=== PATIENT | female | born 1975 | race Caucasian/White ===

== ENCOUNTER 2021-10-11 15:05 | Emergency (ER) | payer OTHER, SELFPAY ==
[2021-10-11 15:21] VITALS: BP 106/71; PULSE 96; RESP 18; TEMP 36.7; O2SAT 97; BMI 27.4
[2021-10-11 15:48] LABS: COVID-19 Test Positive (Negative); IDNOW Serial# 08D9AD1C; IDNOW Serial# 9DD0AD1C; Strep A Nucleic Acid Negative (Negative)
--- NOTE | 2021-10-11 16:31 | ED_ITS ---
HPI - General Adult General Chief complaint: General Medical Stated complaint: tonsils swollen Time Seen by Provider: 10/11/21 16:21 Source: patient Mode of arrival: ambulatory Limitations: no limitations History of Present Illness HPI narrative: 46-year-old female with a past medical history of tonsillitis here with complaints of sore throat and dry cough for 3 days. No fevers or chills. Patient is not vaccinated for COVID. Related Data Allergies Allergy/AdvReac Type Severity Reaction Status Date / Time No Known Allergies Allergy Verified 10/11/21 15:20 Review of Systems Review of Systems: Yes all other systems are reviewed and are negative Constitutional: Constitutional: Reports no additional constitutional complaints, Denies body ache(s), Denies chills, Denies fever(s), Denies headache(s) and Denies weakness Eyes: Eyes: Reports no additional eye complaints and Denies change in vision ENT: Reports system reviewed and no additional complaints, except as documented, Denies dizziness, Denies headache(s), Denies nasal congestion, Denies nasal discharge, Denies neck pain and Reports sore throat Cardiovascular: Cardiovascular: Reports no additional cardiovascular complaints, Denies chest pain, Denies leg edema and Denies dyspnea Respiratory: Respiratory: Reports no additional respiratory complaints, Reports cough and Denies dyspnea Gastrointestinal: Gastrointestinal: Reports no additional gastrointestinal complaints, Denies abdominal pain, Denies diarrhea, Denies nausea and Denies vomiting Genitourinary: Genitourinary: Reports no additional female genitourinary complaints and Denies urinary incontinence Musculoskeletal: Musculoskeletal: Reports no additional musculoskeletal complaints, Denies back pain, Denies arthralgias, Denies joint swelling, Denies neck pain, Denies numbness and Denies tingling Integumentary/Breasts: Skin/Breast: Reports system reviewed and no additional complaints, except as docu and Denies rash Neurologic: Reports system reviewed and no additional complaints, except as documented, Denies Abnormal speech present, Denies dizziness, Denies headache(s), Denies numbness, Denies tingling and Denies weakness PMFSH Past Medical History Attestation statement: The following information was validated with the patient. Source: old records reviewed and nursing notes reviewed Medical History Depression Migraines Tonsillitis Social History Social History Advance Directives: No Advance Directives Information Provided: No Patient : No Physical Exam Vital Signs: Vital Signs: Last Vital Signs Temp 98.0 F 10/11/21 15:21 Pulse 96 10/11/21 15:21 Resp 18 10/11/21 15:21 BP 106/71 10/11/21 15:21 Pulse Ox 97 10/11/21 15:21 Body Mass Index 27.4 Const: General: cooperative, healthy appearing, comfortable and no acute distress Orientation/consciousness: patient oriented x3 Limitations: no limitations HENMT: Head: Yes normal to inspection Ears: hearing grossly normal bilatera lly and TM's normal bilaterally General nose exam: Normal external nose present Face and sinus: Yes normal facial exam Mouth: Normal oral and palatal mucosa present Throat: Yes posterior oropharynx normal, Yes tonsils normal and Yes uvula midline Eyes: General: appearance normal, both eyes and all related structures Pupils: Equal, round and reactive pupils present Neck: Neck: Yes normal visual inspection, Yes full ROM and Yes no lymphadenopathy Chest: Chest palpation & inspection: normal inspection of the chest Resp: Effort & Inspection: normal respiratory effort Auscultation: clear to auscultation bilaterally Cardio: Rate: regular rate Rhythm: regular rhythm Peripheral pulses: Peripheral pulses 2+ throughout GI: Inspection: Yes normal to inspection Palpation (GI): Soft to palpation and nontender Auscultation: normal bowel sounds Back/Spine/Pelvis: Thoracic/Lumbar Spine: thoracic and lumbar spine normal to inspection Skin: General skin exam: no rashes or lesions noted Neuro: General: patient oriented x3, no focal motor deficits and normal sensation to monofilament Cranial nerves: Yes Equal, round and reactive pupils present Cognition (Neuro): normal cognition Speech: No Abnormal speech present Gait exam (Neuro): Normal gait present Motor exam (neuro): 5/5 motor strength present throughout Extrem: General: Yes normal to inspection Course Course Course Narrative: Sore throat and cough for 3 days. Strep test is negative. Exam is not consistent with strep pharyngitis. Rapid COVID is positive. Discussed quarantine with patient. Reviewed worrisome signs and symptoms of when to return to the emergency department. Comfortable discharge home. Medical Decision Making Medical Records Medical records reviewed: Yes I reviewed the patient's medical records. Lab Data Lab results reviewed: Yes I reviewed the patient's lab results. Labs: Lab Results 10/11/21 10/11/21 Range/Units 15:26 15:26 COVID-19 (JOIE) Positive A (Negative) COVID-19 Clin Com See Note S. pyogenes GrpA LIGIA Negative (Negative) Discharge Plan Discharge Clinical Impression: COVID-19 Patient Disposition: Home, Self-Care Instructions: COVID-19 (Coronavirus Disease 2019) (ED) Additional Instructions: Rapid strep test is negative Motrin or tylenol for pain Salt water gargles Cepacol lozenges 10 day quarentine Referrals: Meng Penn MD [Primary Care Provider] - 2 days Stand Alone Forms: Work/School Release
== END 2021-10-11 17:23 | disposition home or self-care (01) ==
PROVIDERS: Emergency Provider Emergency Medicine Emergency Medical Services; PCP Internal Medicine
DX: U07.1 COVID-19 (principal)
CPT/HCPCS: 36415; 87635; 87651; 99283

== ENCOUNTER 2023-07-02 15:51 | Outpatient (AMB) | payer OTHER, SELFPAY ==
--- NOTE | 2023-07-02 15:58 | AM.OFFWIN_ITS ---
Intake Vital Signs 07/02/23 16:03 BP 130/90 H Blood Pressure Location Lt brachial Position Sitting Pulse 98 Pulse Source Pulse Oximeter Temp 98.2 F Temp Source Oral Pulse Oximetry (%) 99 Oxygen Delivery Method Room Air Intake Visit Reasons: [employer], Cold Sores in lips Intake Note: Patient here for cold sores around mouth, she states she has had them before but never as bad as it is now. pt has been using abreva Patient Tobacco Use Status: Never used Tobacco Allergies No Known Allergies Allergy (Verified 07/02/23 16:00) Do you need a note to return to daycare/school/sports/work: No HPI HPI Comments History of Present Illness Details 48-year-old woman presents for cold sores patient's prodrome tingling yesterday on her upper lip. She used cream at home. Today she woke up vesicles on her upper and lower lips. Exquisitely. She has had cold sores previously before. She has been on acyclovir before. [facility] Medical History Depression Migraines Tonsillitis Social History Patient Tobacco Use Status: Never used Tobacco Review of Systems Const All systems reviewed & are unremarkable except as noted in HPI and below Reports as per HPI ENT Details: Cold sores on upper and lower lip Physical Exam Vital Signs: Last Vital Signs Temp 98.2 F 07/02/23 16:03 Pulse 98 07/02/23 16:03 BP 130/90 H 07/02/23 16:03 Pulse Ox 99 07/02/23 16:03 Oxygen Delivery Method Room Air 07/02/23 16:03 Const General: cooperative, healthy appearing, no acute distress, well developed and alert HEENT Other: Crusted lesions vesicles on the upper and lower lips. 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 Exam patient presents alert and oriented no acute distress exam notable for vesicles crusted lesions on the upper and lower lips. No oral mucosa involvement. Symptoms of incision consistent with herpes labialis. Acyclovir prescribed. Discharge instructions, follow up and treatment are discussed with patient in my usual fashion. Alternatives in treatment are also discussed. The patient will return for worsening symptoms or as needed. Advised that any labs/imaging ordered will be followed up on and contact made if further treatment needed. Counseled that patient's condition may require further evaluation and/or treatment. Symptoms of concern for worsening disorder discussed in detail in my customary manner. Patient does verbalize understanding of the plan, there are no apparent barriers to communication. The patient is given the opportunity to ask questions and have them answered to his/her satisfaction Medications: New acyclovir 400 mg orally 5x/day (q4hrs while awake); x 5 days 25 tabs 0RF Coding Level of Care Code New Pt Level 3 (47076) Diagnoses Herpes labialis B00.1
[2023-07-02 16:03] VITALS: BP 130/90; PULSE 98; TEMP 36.8; O2SAT 99
== END 2023-07-02 16:14 | disposition home or self-care (01) ==
PROVIDERS: PCP Internal Medicine; Visit Provider Physician Assistant
DX: B00.1 Herpesviral vesicular dermatitis (principal)
CPT/HCPCS: 99203

== ENCOUNTER 2023-10-05 09:10 | Outpatient (AMB) | payer OTHER, SELFPAY ==
[2023-10-05 10:19] VITALS: BP 132/84; PULSE 108; TEMP 36.7; O2SAT 98; BMI 27.5
--- NOTE | 2023-10-05 10:19 | AM.OFFWIN_ITS ---
Intake Vital Signs 10/05/23 10:19 Height 5 ft 4 in Weight 160 lb BMI 27.5 BP 132/84 Blood Pressure Location Rt brachial Position Sitting Pulse 108 H Pulse Source Pulse Oximeter Temp 98.0 F Temp Source Oral Pulse Oximetry (%) 98 Oxygen Delivery Method Room Air Intake Visit Reasons: EST/pink eye & sinus infection [phone] Intake Note: pt is here for c/o possible sinus infection and eye irritation , redness, watery. denies vision change Patient Tobacco Use Status: Never used Tobacco Allergies No Known Allergies Allergy (Verified 10/05/23 10:21) Do you need a note to return to daycare/school/sports/work: Yes HPI EST/pink eye & sinus infection [phone] HPI Details Patient presents for a sick visit. Reporting symptoms of sinus congestion, sore throat and difficulty swallowing. Low-grade fever. No family member is sick. No recent travel. Patient reports symptoms of malaise and fatigue. [facility] Medical History Depression Migraines Tonsillitis Social History Patient Tobacco Use Status: Never used Tobacco Physical Exam Vital Signs: Last Vital Signs Temp 98.0 F 10/05/23 10:19 Pulse 108 H 10/05/23 10:19 BP 132/84 10/05/23 10:19 Pulse Ox 98 10/05/23 10:19 Oxygen Delivery Method Room Air 10/05/23 10:19 BMI result Body Mass Index 27.5 Const General: cooperative and healthy appearing Nutritional Appearance: well nourished Orientation/consciousness: patient oriented x3 Limitations: no limitations HEENT Head: Yes normal to inspection Eyes Other: Congested conjunctiva, bulbar and tarsal, bilaterally. General: appearance normal, both eyes and all related structures Neck Neck: Yes normal visual inspection Chest Chest palpation & inspection: normal palpation of entire chest wall Resp Effort & Inspection: normal respiratory effort Neuro General: patient oriented x3 Assessment & Plan Assessment & Plan (1) Upper respiratory tract infection: Code(s): J06.9 - Acute upper respiratory infection, unspecified Plan: Antibiotics ordered. Increase fluid intake. Tylenol for aches and pains. If symptoms worsen, follow-up here for a recheck. Medications: New prednisone 60 mg (3 x 20 mg) PO DAILY 9 tabs 0RF azithromycin take 500 mg today (day 1), then 250 mg for 4 days (days 2-5) PO 6 tabs 0RF albuterol sulfate 90 mcg/actuation (Ventolin HFA) 1 inh inhalation QID PRN 8.5 grams 1RF shortness of breath or wheezing Coding Level of Care Code Est Pt Level 3 (98016) Diagnoses Upper respiratory tract infection J06.9
== END 2023-10-05 11:17 | disposition home or self-care (01) ==
PROVIDERS: PCP Internal Medicine; Visit Provider Internal Medicine
DX: J06.9 Acute upper respiratory infection, unspecified (principal)
CPT/HCPCS: 99213

== ENCOUNTER 2023-10-05 13:19 | Outpatient (REF) | payer OTHER, SELFPAY ==
[2023-10-05 15:01] LABS: Influenza A PCR NEGATIVE (Negative); Influenza B PCR NEGATIVE (Negative); Resp Syncy Virus RNA Qual PCR NEGATIVE (Negative); SARS COV2 PCR INHOUSE NEGATIVE (Negative)
== END 2023-10-05 13:20 | disposition home or self-care (01) ==
LOC: HO.LNP 13:19
PROVIDERS: Visit Provider Internal Medicine
DX: Z11.52 Encounter for screening for COVID-19 (principal); Z20.822 Contact with and (suspected) exposure to COVID-19; R43.9 Unspecified disturbances of smell and taste
CPT/HCPCS: 0241U

== ENCOUNTER 2024-03-23 13:55 | Outpatient (AMB) | payer OTHER, SELFPAY ==
[2024-03-23 13:58] VITALS: BP 126/76; PULSE 105; TEMP 36.7; O2SAT 96; BMI 28.5
--- NOTE | 2024-03-23 13:58 | MHC.OFFWIV ---
Intake Vital Signs 03/23/24 13:58 Height 5 ft 4 in Weight 166 lb BMI 28.5 BP 126/76 Blood Pressure Location Lt brachial Position Sitting Pulse 105 H Pulse Source Pulse Oximeter Temp 98.0 F Temp Source Temporal Artery Scan Pulse Oximetry (%) 96 Oxygen Delivery Method Room Air Intake Visit Reasons: EP Sinus/Ear ache Intake Note: pt is here today for sinus and ear ache started 3 weeks ago Patient Tobacco Use Status: Never used Tobacco Allergies lidocaine Allergy (Mild, Verified 03/23/24 14:22) Nausea Medication List - Last Reconciled 03/23/24 by Bharathi Miranda MD acyclovir 400 mg orally 5x/day (q4hrs while awake); x 5 days albuterol sulfate 90 mcg/actuation (Ventolin HFA) 1 inh inhalation QID PRN amoxicillin 500 mg PO Q8H atogepant (Qulipta) 60 mg PO DAILY carisoprodol 350 mg PO BEDTIME duloxetine 120 mg PO DAILY fluticasone propionate 50 mcg/actuation (Flonase Allergy Relief) 1 spray intranasal DAILY naratriptan 2.5 mg PO DIRECTED norethindrone acetate mg PO ondansetron HCl 4 mg PO Q12H PRN riboflavin (vitamin B2) (Vitamin B-2) 200 mg PO BID topiramate 50 mg PO BID Do you need a note to return to daycare/school/sports/work: No HPI EP Sinus/Ear ache HPI Details 49 yr old female presents to the office for a sick visit. Recently returned on a flight from [place]. Right ear pain, congestion and sinus fullness. Low grade headaches. No fever or chills. PFSH Medical History Depression Migraines Tonsillitis Social History Patient Tobacco Use Status: Never used Tobacco Physical Exam Vital Signs: Last Vital Signs Temp 98.0 F 03/23/24 13:58 Pulse 105 H 03/23/24 13:58 BP 126/76 03/23/24 13:58 Pulse Ox 96 03/23/24 13:58 Oxygen Delivery Method Room Air 03/23/24 13:58 BMI result Body Mass Index 28.5 Const General: cooperative and healthy appearing Nutritional Appearance: well nourished Orientation/consciousness: patient oriented x3 Limitations: no limitations HEENT Head: Yes normal to inspection Eyes General: appearance normal, both eyes and all related structures Neck Neck: Yes normal visual inspection Chest Chest palpation & inspection: normal palpation of entire chest wall Resp Effort & Inspection: normal respiratory effort Neuro General: patient oriented x3 Assessment & Plan Assessment & Plan (1) Upper respiratory tract infection: Code(s): J06.9 - Acute upper respiratory infection, unspecified Plan: Amox and flonase called in. If sx do not improve to follow up here. Medications: New fluticasone propionate 50 mcg/actuation (Flonase Allergy Relief) administer into each nostril 1 spray intranasal DAILY 9.9 mL 1RF amoxicillin 500 mg PO Q8H 30 caps 0RF Discontinued azithromycin Discontinued Reason: Patient Completed Course take 500 mg today (day 1), then 250 mg for 4 days (days 2-5) PO 6 tabs 0RF Coding Level of Care Code Est Pt Level 3 (53423) Diagnoses Upper respiratory tract infection J06.9
== END 2024-03-23 14:49 | disposition home or self-care (01) ==
PROVIDERS: Visit Provider Internal Medicine
DX: J06.9 Acute upper respiratory infection, unspecified (principal)
CPT/HCPCS: 99213

== ENCOUNTER 2024-07-24 16:46 | Emergency (ER) | payer OTHER, SELFPAY ==
--- NOTE | ~2024-07-24 | XR_ITS ---
EXAMINATION: XR ABDOMEN KUB CLINICAL INDICATION: Abdominal pain, no bowel movement in 5 days. COMPARISON: CT abdomen 12/29/2008. TECHNIQUE: AP view of the abdomen. FINDINGS: Nonobstructive bowel gas pattern. Nonspecific gaseous distention of the stomach and a small loop of bowel in the left upper quadrant. Moderate degree of colonic stool burden in the right hemicolon. Pelvic phleboliths. No acute osseous findings. Included lung bases are clear. XR/XR KUB IMPRESSION: 1. Moderate degree of stool burden in the right hemicolon. 2. Nonspecific gaseous distention of the stomach and a small loop of bowel in the left upper abdomen, could potentially represent focal ileus. Correlate clinically. 3. Nonobstructive bowel gas pattern. Electronically signed by: Carmel Seo MD 07/24/2024 05:30 PM EDT
[2024-07-24 16:50] VITALS: BP 139/77; PULSE 122; RESP 18; TEMP 36.8; O2SAT 98; BMI 28.7
--- NOTE | 2024-07-24 16:51 | ED_ITS ---
HPI - General Adult General Chief complaint: Abdominal Pain Stated complaint: abd pain Time Seen by Provider: 07/24/24 22:08 Source: patient Mode of arrival: ambulatory Limitations: no limitations History of Present Illness ED Provider: Dr. Hair Ramires HPI narrative: 49-year-old female with a history of migraine headaches, depression who was started on Aimovig 4-5 months prior for her migraine headaches and now presents to the emergency department for evaluation of severe constipation and abdominal pain. Patient states that over the last 2 months she has noticed constipation. She states the constipation has gotten worse over the last month and she was taking Senna-S daily in order to move her bowels. She states that her last real bowel movement was 1 week prior. She states she had a bowel movement today but it was very small, hard stool. Also developed abdominal pain over the last week which is gotten progressively worse. She points to her lower abdomen in her left lower quadrant specifically when asked to localize the pain. She denied fever, chills. She has had nausea with no vomiting. She denied frequency , urgency or dysuria Related Data Home Medications ?Medication ?Instructions ?Recorded ?Confirmed carisoprodol 350 mg tablet 350 mg PO BEDTIME 07/02/23 duloxetine 60 mg capsule,delayed 120 mg PO DAILY 07/02/23 release naratriptan 2.5 mg tablet 2.5 mg PO DIRECTED 07/02/23 norethindrone acetate 5 mg tablet mg PO 07/02/23 ondansetron HCl 4 mg tablet 4 mg PO Q12H PRN nausea 07/02/23 riboflavin (vitamin B2) 100 mg 200 mg PO BID 07/02/23 tablet (Vitamin B-2) topiramate 50 mg tablet 50 mg PO BID 07/02/23 atogepant 60 mg tablet (Qulipta) 60 mg PO DAILY 10/05/23 Previous Rx's ?Medication ?Instructions ?Recorded acyclovir 400 mg tablet 400 mg PO .COMPLEX #25 tabs 07/02/23 albuterol sulfate 90 mcg/actuation 1 inh inhalation QID PRN shortness 10/05/23 aerosol inhaler (Ventolin HFA) of breath or wheezing #8.5 grams amoxicillin 500 mg capsule 500 mg PO Q8H #30 caps 03/23/24 fluticasone propionate 50 1 spray intranasal DAILY #9.9 mL 03/23/24 mcg/actuation nasal spray,suspension (Flonase Allergy Relief) Allergies Allergy/AdvReac Type Severity Reaction Status Date / Time lidocaine Allergy Mild Nausea Verified 07/24/24 16:51 Review of Systems 2 Review of Systems: Yes all other systems are reviewed and are negative [facility] Past Medical History [facility] Narrative: Social history: She denies tobacco use. She occasionally drinks alcohol. She denies drug use. Medical History Depression Migraines Tonsillitis Social History Social History Patient Tobacco Use Status: Never used Tobacco Advance Directives: No Advance Directives Information Provided: No Do you have a plan to hurt others: No Plan Physical Exam ED Vital Signs: Vital Signs - 24 hr 07/24/24 16:50 07/24/24 23:34 07/25/24 01:23 Temperature 98.2 F 98.2 F 98.0 F Pulse Rate 122 H 130 H 118 H Respiratory Rate 18 18 16 Blood Pressure 139/77 153/106 H 115/74 Pulse Oximetry 98 98 96 Oxygen Delivery Method Room Air Room Air Room Air BMI result Body Mass Index 28.7 Vital signs revealed an elevated heart rate of 122 elevated blood pressure of 139/77. Exam: General: Awake, alert in no distress Head: Normocephalic, atraumatic EENT: PERRL, Lids normal, sclera normal, conjunctiva normal, nose normal , ears normal, throat without erythema or exudates Neck: Supple, no adenopathy Lung: breath sounds symmetric, no wheezing, rales or rhonchi Chest: symmetric movement, nontender Heart: regular rate and rhythm, normal S1, S2 no murmurs or rubs Abdomen: soft, moderate left lower quadrant tenderness, normoactive bowel sounds, no rebound, no voluntary or involuntary guarding. Rectal: Patient had no stool impaction, stool was brown and Hemoccult negative Back: no vertebral tenderness, no CVAT Extremities: no deformities, moves all extremities symmetrically Neuro: Awake, alert, oriented, normal speech, cranial nerves intact, moves all extremities symmetrically Psych: Pleasant, cooperative Course Course Course Narrative: This is a rapid medical exam performed by José Luis Lam NP: Additional HPI, ROS, PE not included below will be deferred to primary provider. Patient is a 49-year-old female presenting with complaint of lower abdominal pain radiating around to back. Last BM 5 days ago. Denies nausea/vomiting. Denies urinary symptoms. Tried drinking increased water, but mouth feels dry. Tachycardic in triage. Plan: EKG, labs, UA Medical Decision Making Medical Decision Making [facility] Narrative: 49-year-old female with a history of migraine headaches, depression who was started on Aimovig 4-5 months prior for her migraine headaches and now presents to the emergency department for evaluation of severe constipation and abdominal pain. Patient was had constipation x2 months, for 1 month she has been taking Harry-S to help move her bowels with her last good bowel movement 1 week prior. She was also had increasing left lower quadrant abdominal pain over the last several days. Vital signs revealed an elevated blood pressure and elevated heart rate. Physical examination revealed increased tenderness in the left lower quadrant area. Differential diagnosis: ?Includes but is not limited to constipation, obstipation, bowel obstruction, side effects/adverse reaction to Aimovig, anemia, electrolyte abnormality Following evaluation was ordered: CBC, CMP, Patient was initially treated with the following: Soapsuds enema Course: My interpretation patient's laboratory evaluation as follows: Elevated WBC 27541. Elevated platelet count 468. Normal CMP. The patient's KUB revealed no obstructive pattern but the patient did have a large stool burden in both the left and right colon. Patient was treated with a soapsuds enema with significant bowel movement and some improvement of her pain. Patient was discharged home and advised to take Metamucil 1 tsp in 8 oz of water twice a day, Colace 100 mg twice a day and Harry-S if no bowel movement in 4 days. If she was no bowel movement after 3 days of taking the laxative then she was advised to use a Fleet's enema. She was given printed and verbal instructions and discharged home Admission/Observation Consideration of admission/observation: Escalation of care including admission/observation considered Lab Data [facility] Lab Attestation statement: I reviewed the patient's lab results. 07/24/24 17:15 07/24/24 17:15 Labs: Lab Results 07/24/24 Range/Units 17:15 WBC 13.7 H (4.8-10.8) X10*3/uL RBC 4.58 (4.20-5.50) X10*6/uL Hgb 12.7 (12.0-16.0) g/dl Hct 37.8 (37.0-47.0) % MCV 82.5 (80.0-98.0) fL MCH 27.7 (27.0-33.0) pg MCHC 33.6 (31.0-35.0) g/dl RDW 16.6 H (11.0-16.0) % Plt Count 468 H (160-400) X10*3/uL MPV 9.2 L (9.4-12.3) fL Immature Gran % (Auto) 0.5 H (0.0-0.4) % Neut % (Auto) 80.0 H (45-73) % Lymph % (Auto) 8.6 L (20-40) % [place] % (Auto) 8.3 (2-11) % Eos % (Auto) 2.2 (0-4) % Baso % (Auto) 0.4 (0-2) % Lymph # (Auto) 1.2 (1.2-4.9) X10*3/uL [place] # (Auto) 1.1 (0.1-1.2) X10*3/uL Eos # (Auto) 0.3 (0.0-0.4) X10*3/uL Baso # (Auto) 0.1 (0.0-0.2) X10*3/uL Abs Immat Gran (auto) 0.07 H (0.00-0.03) X10*3/uL Absolute Neuts (auto) 10.9 H (2.0-8.3) x10*3/uL Absolute Nucleated RBC 0.000 (0.0-0.012) X10*3/uL Nucleated RBC % (auto) 0.0 (0.0-0.2) /100WBC Sodium 140 (135-145) mmol/L Potassium 3.9 (3.3-5.1) mmol/L Chloride 107 (96-108) mmol/L Carbon Dioxide 18 L (22-29) mmol/L Anion Gap 19 (12-20) BUN 14 (9-16) mg/dL Creatinine 0.79 (0.5-1.4) mg/dL Estim Creat Clear Calc 87.7 Estimated GFR > 60 Random Glucose 78 (60-115) mg/dL Calcium 9.5 (8.4-10.2) mg/dL Total Bilirubin 0.2 (0.0-1.0) mg/dL AST 17 (5-31) U/L ALT 30 (0-31) U/L Alkaline Phosphatase 51 (39-117) U/L Total Protein 7.3 (6.5-8.0) g/dL Albumin 3.7 (3.5-5.0) g/dL Independent Interpretation I performed an independent interpretation of an: Plain X-Ray Interpretation: My interpretation of the patient's KUB is as follows: No obstructive gas pattern, increased stool burden in the left and right: Radiology Impression Discussion of test interpretation with radiology: I have reviewed the radiologist's reading. Radiologist Impression: XR KUB IMPRESSION: 1. Moderate degree of stool burden in the right hemicolon. 2. Nonspecific gaseous distention of the stomach and a small loop of bowel in the left upper abdomen, could potentially represent focal ileus. Correlate clinically. 3. Nonobstructive bowel gas pattern. Electronically signed by: Carmel Seo MD 07/24/2024 05:30 PM EDT RP Dictated By: Joy Seo Chronic Conditions Patient?s care impacted by: Other (Chronic migraines) Discharge Plan Discharge Clinical Impression: Constipation Qualifiers: Constipation type: unspecified constipation type Qualified Code(s): K59.00 - Constipation, unspecified Abdominal pain Qualifiers: Abdominal location: lower abdomen, unspecified Qualified Code(s): R10.30 - Lower abdominal pain, unspecified Patient Disposition: Home, Self-Care Instructions: Constipation (ED) Additional Instructions: Your blood tests were unremarkable. The x-ray of your abdomen did not reveal any evidence for bowel obstruction but did reveal large amount of stool in your colon. Your constipation may be related to the Aimovig in you should discuss this possibility with the doctor that is prescribing this medication for you. Take Metamucil 1 tsp in 8 oz of water twice a day. This is a fiber supplement that will increase the amount of fluid in your colon and help with constipation. You should increase the amount of fluid that you drink daily and this will make the Metamucil more effective. Take Colace 100 mg pills, 1 pill twice a day, this is a stool softener. If you do not have a bowel movement in 4 days then you can take the laxative, extra-strength Harry-S twice a day for 4 days. If you still do not have a bowel movement after taking the laxative then use a Fleet's enema. Follow-up with your doctor in 2 days. Please return to the emergency department if your symptoms get worse or if you develop any symptoms that are concerning to you. Prescriptions: No Action naratriptan 2.5 mg tablet 2.5 mg PO DIRECTED ondansetron HCl 4 mg tablet 4 mg PO Q12H PRN (Reason: nausea) carisoprodol 350 mg tablet 350 mg PO BEDTIME riboflavin (vitamin B2) [Vitamin B-2] 100 mg tablet 200 mg PO BID topiramate 50 mg tablet 50 mg PO BID duloxetine 60 mg capsule,delayed release(DR/EC) 120 mg PO DAILY norethindrone acetate 5 mg tablet PO acyclovir 400 mg tablet 400 mg PO .COMPLEX Qty: 25 0RF Rx Instructions: 400 mg orally 5x/day (q4hrs while awake); x 5 days Qulipta 60 mg tablet 60 mg PO DAILY albuterol sulfate [Ventolin HFA] 90 mcg/actuation HFA aerosol inhaler 1 inh inhalation QID PRN (Reason: shortness of breath or wheezing) Qty: 8.5 1RF amoxicillin 500 mg capsule 500 mg PO Q8H Qty: 30 0RF fluticasone propionate [Flonase Allergy Relief] 50 mcg/actuation spray,suspension 1 spray intranasal DAILY Qty: 9.9 1RF Rx Instructions: administer into each nostril Interventions: ED Discharge Assessment Last Done: 07/25/24 01:23 Discharge Date/Time: 07/25/24 01:27 Print Language: Greenlandic
--- NOTE | 2024-07-24 16:53 | ECG_ITS ---
Test Reason : TACHYCARDIC, ABD PAIN Blood Pressure : / mmHG Vent. Rate : 122 BPM Atrial Rate : 122 BPM P-R Int : 134 ms QRS Dur : 080 ms QT Int : 312 ms P-R-T Axes : 055 041 049 degrees QTc Int : 444 ms Sinus tachycardia Otherwise normal ECG No previous ECGs available Referred By: Melissa Lam Electronically Signed By:FLYNN GARCIA
[2024-07-24 17:20] LABS: MANUAL DIFF FLAG NO
[2024-07-24 17:21] LABS: Basophils Absolute Auto 0.1 X10*3/uL (0.0-0.2); Basophils Percent Auto 0.4 % (0-2); Eosinophils Absolute Auto 0.3 X10*3/uL (0.0-0.4); Eosinophils Percent Auto 2.2 % (0-4); Hematocrit 37.8 % (37.0-47.0); Hemoglobin 12.7 g/dl (12.0-16.0); Imm Gran Abs Auto 0.07 X10*3/uL (0.00-0.03); Imm Gran Pct Auto 0.5 % (0.0-0.4); Lymphocytes Absolute Auto 1.2 X10*3/uL (1.2-4.9); Lymphocytes Percent Auto 8.6 % (20-40); Mean Corpuscular HGB Conc 33.6 g/dl (31.0-35.0); Mean Corpuscular Hemoglobin 27.7 pg (27.0-33.0); Mean Corpuscular Volume 82.5 fL (80.0-98.0); Mean Platelet Volume 9.2 fL (9.4-12.3); Monocytes Absolute Auto 1.1 X10*3/uL (0.1-1.2); Monocytes Percent Auto 8.3 % (2-11); Neutrophils Absolute Auto 10.9 x10*3/uL (2.0-8.3); Platelet Count 468 X10*3/uL (160-400); Red Blood Count 4.58 X10*6/uL (4.20-5.50); Red Cell Distribution Width 16.6 % (11.0-16.0); White Blood Count 13.7 X10*3/uL (4.8-10.8)
[2024-07-24 18:00] LABS: Alanine Aminotransferase 30 U/L (0-31); Albumin Level 3.7 g/dL (3.5-5.0); Alkaline Phosphatase 51 U/L (39-117); Anion Gap 19 (12-20); Aspartate Amino Transferase 17 U/L (5-31); Bilirubin Total 0.2 mg/dL (0.0-1.0); Blood Urea Nitrogen 14 mg/dL (9-16); Calcium 9.5 mg/dL (8.4-10.2); Carbon Dioxide 18 mmol/L (22-29); Chloride 107 mmol/L (96-108); Creatinine Clr Calc Pharmacy 87.7; Estimated Glomerular Filt Rate > 60; Glucose Random 78 mg/dL (60-115); Potassium 3.9 mmol/L (3.3-5.1); Sodium 140 mmol/L (135-145); Total Protein 7.3 g/dL (6.5-8.0)
--- NOTE | 2024-07-24 23:21 | PC.NURSE ---
sse administered per order
[2024-07-24 23:34] VITALS: BP 153/106; PULSE 130; RESP 18; TEMP 36.8; O2SAT 98
[2024-07-25 01:23] VITALS: BP 115/74; PULSE 118; RESP 16; TEMP 36.7; O2SAT 96
== END 2024-07-25 01:27 | disposition home or self-care (01) ==
PROVIDERS: Registered Nurse Emergency; Emergency Provider Emergency Medicine Emergency Medical Services; PCP Nurse Practitioner Family
DX: K59.00 Constipation, unspecified (principal); R10.30 Lower abdominal pain, unspecified; R00.0 Tachycardia, unspecified; Z79.899 Other long term (current) drug therapy
CPT/HCPCS: 36415; 74018; 80053; 85025; 93005; 99283

== ENCOUNTER 2024-07-26 18:46 | Emergency (ER) | payer OTHER, SELFPAY ==
[2024-07-26 18:49] VITALS: BP 120/78; PULSE 126; RESP 20; TEMP 36.8; O2SAT 99; BMI 28.1
--- NOTE | 2024-07-26 18:49 | ED.GENADULT ---
HPI - General Adult General Chief complaint: Abdominal Pain Stated complaint: Abdominal pain Time Seen by Provider: 07/26/24 22:10 Source: patient Mode of arrival: ambulatory Limitations: no limitations History of Present Illness ED Provider: doris RANDOLPH narrative: Patient's history of constipation comes here as having small bowel movements patient was seen here on 07/24 and had enema done and had a good bowel movement at that now she passing only small palate no nausea no vomiting does complain of diffuse abdominal cramps patient taking Metamucil and Colace at home no vomiting no abdominal distention Related Data Home Medications ?Medication ?Instructions ?Recorded ?Confirmed carisoprodol 350 mg tablet 350 mg PO BEDTIME 07/02/23 duloxetine 60 mg capsule,delayed 120 mg PO DAILY 07/02/23 release naratriptan 2.5 mg tablet 2.5 mg PO DIRECTED 07/02/23 norethindrone acetate 5 mg tablet mg PO 07/02/23 ondansetron HCl 4 mg tablet 4 mg PO Q12H PRN nausea 07/02/23 riboflavin (vitamin B2) 100 mg 200 mg PO BID 07/02/23 tablet (Vitamin B-2) topiramate 50 mg tablet 50 mg PO BID 07/02/23 atogepant 60 mg tablet (Qulipta) 60 mg PO DAILY 10/05/23 Previous Rx's ?Medication ?Instructions ?Recorded acyclovir 400 mg tablet 400 mg PO .COMPLEX #25 tabs 07/02/23 albuterol sulfate 90 mcg/actuation 1 inh inhalation QID PRN shortness 10/05/23 aerosol inhaler (Ventolin HFA) of breath or wheezing #8.5 grams amoxicillin 500 mg capsule 500 mg PO Q8H #30 caps 03/23/24 fluticasone propionate 50 1 spray intranasal DAILY #9.9 mL 03/23/24 mcg/actuation nasal spray,suspension (Flonase Allergy Relief) polyethylene glycol 3350 17 17 g PO DAILY #510 grams 07/26/24 gram/dose oral powder (Miralax) Allergies Allergy/AdvReac Type Severity Reaction Status Date / Time lidocaine Allergy Mild Nausea Verified 07/26/24 18:53 Review of Systems Review of Systems: Yes all other systems are reviewed and are negative PMFSH Past Medical History Medical History Depression Migraines Tonsillitis Social History Social History Patient Tobacco Use Status: Never used Tobacco Advance Directives: No Advance Directives Information Provided: No Do you have a plan to hurt others: No Plan Physical Exam ED Vital Signs: Vital Signs - 24 hr 07/26/24 18:49 Temperature 98.3 F Pulse Rate 126 H Respiratory Rate 20 Blood Pressure 120/78 Pulse Oximetry 99 Oxygen Delivery Method Room Air BMI result Body Mass Index 28.1 Appearance: Alert. Oriented X3. No acute distress. Eyes: No pallor or icterus ENT: Pharynx normal. Oral Mucosa moist Neck: Normal inspection. Neck supple. CVS: Normal heart rate and rhythm. Pulses normal. Respiratory: No respiratory distress. Equal air entry bilateral, i Abdomen: Soft and nontender. Bowel sounds are present, no mass palpable, no CVA tenderness rectal: No stool palpable Skin: Skin warm and dry. Normal skin color. Normal skin turgor. Extremities: No lower extremity edema. No calf tenderness Neuro: Oriented X 3. Course Course Course Narrative: This is an RME done by FRANSICO Wyatt: Additional HPI, ROS, PE not included below will be deferred to primary provider. 49 year old female with abdominal pain for the past few weeks. She was just here on 07/24/2024 for the same compliant, was given MetaMucil but has not had a bowel movement yet. She was recently started on Aimovig 4-5 months prior for her migraine headaches. She has been experiencing hot flashes. Denies fevers, nausea, vomiting. Appearance: Alert.? Oriented X3.? No acute cardiopulmonary distress distress.? Head: Normocephalic, atraumatic, no step-offs or deformities Neck: Normal inspection.? Neck supple.? CVS: Pulses normal.? Respiratory: No respiratory distress.? Abdomen: Soft and nontender.? Skin: ? Normal skin color. Extremities: 5/5 strength to bilateral upper and lower extremities Neuro: Oriented X 3.? No motor deficit.? No sensory deficit. Medications Administered Discontinued Medications Generic Name Dose Route Start Last Admin Trade Name Freq PRN Reason Stop Dose Admin Bisacodyl 10 mg 07/26/24 22:25 07/26/24 22:32 Bisacodyl 5 Mg Tablet.Dr BRYAN 07/26/24 22:26 10 mg ONCE ONE Administration Magnesium Hydroxide 30 ml 07/26/24 22:25 07/26/24 22:33 Milk Of Magnesia 30 Ml Oral.Susp PO 07/26/24 22:26 30 ml ONCE ONE Administration Medical Decision Making Medical Decision Making [facility] Narrative: Patient constipation no signs of obstruction rectum was empty will prescribe MiraLax home patient was given milk of magnesia in the ER Lab Data 07/26/24 18:59 07/26/24 18:59 Labs: Lab Results 07/26/24 07/26/24 Range/Units 18:59 19:04 WBC 19.7 H (4.8-10.8) X10*3/uL RBC 4.91 (4.20-5.50) X10*6/uL Hgb 13.5 (12.0-16.0) g/dl Hct 39.8 (37.0-47.0) % MCV 81.1 (80.0-98.0) fL MCH 27.5 (27.0-33.0) pg MCHC 33.9 (31.0-35.0) g/dl RDW 17.0 H (11.0-16.0) % Plt Count 578 H (160-400) X10*3/uL MPV 9.2 L (9.4-12.3) fL Immature Gran % (Auto) 0.8 H (0.0-0.4) % Neut % (Auto) 79.8 H (45-73) % Lymph % (Auto) 7.9 L (20-40) % [place] % (Auto) 9.4 (2-11) % Eos % (Auto) 1.7 (0-4) % Baso % (Auto) 0.4 (0-2) % Lymph # (Auto) 1.6 (1.2-4.9) X10*3/uL [place] # (Auto) 1.9 H (0.1-1.2) X10*3/uL Eos # (Auto) 0.3 (0.0-0.4) X10*3/uL Baso # (Auto) 0.1 (0.0-0.2) X10*3/uL Abs Immat Gran (auto) 0.16 H (0.00-0.03) X10*3/uL Absolute Neuts (auto) 15.7 H (2.0-8.3) x10*3/uL Absolute Nucleated RBC 0.000 (0.0-0.012) X10*3/uL Nucleated RBC % (auto) 0.0 (0.0-0.2) /100WBC Smear Tech's Comments VERIFIED Sodium 140 (135-145) mmol/L Potassium 3.7 (3.3-5.1) mmol/L Chloride 107 (96-108) mmol/L Carbon Dioxide 18 L (22-29) mmol/L Anion Gap 19 (12-20) BUN 9 (9-16) mg/dL Creatinine 0.83 (0.5-1.4) mg/dL Estim Creat Clear Calc 82.7 Estimated GFR > 60 Random Glucose 84 (60-115) mg/dL Calcium 9.8 (8.4-10.2) mg/dL Magnesium 2.2 (1.6-2.6) mg/dL Total Bilirubin 0.4 (0.0-1.0) mg/dL AST 17 (5-31) U/L ALT 21 (0-31) U/L Alkaline Phosphatase 59 (39-117) U/L Total Protein 7.4 (6.5-8.0) g/dL Albumin 3.7 (3.5-5.0) g/dL Lipase 24 (8-78) U/L Urine Color Dark Yellow Urine Appearance Cloudy Urine pH 5.5 (5.0-9.0) Ur Specific [place] 1.020 (1.005-1.025) Urine Protein 30 (1+) H (Neg-Trace) mg/dL Urine Glucose (UA) Negative (Negative) mg/dL Urine Ketones 15 (Negative) mg/dL Urine Blood Small (1+) H (Negative) Urine Nitrite Negative (Negative) Ur Leukocyte Esterase Small (1+) H (Negative) Urine RBC 11-20 H (0-2) /HPF Urine WBC 11-20 H (0-5) /HPF Ur Squamous Epith Cells 11-20 (0-2) /HPF Urine Bacteria Trace (None Seen) Hyaline Casts 0-2 (0-2) /LPF Discharge Plan Discharge Clinical Impression: Constipation Patient Disposition: Home, Self-Care Instructions: Constipation (ED) Additional Instructions: Drink plenty of fluids Start taking MiraLax once or twice a day for bowel movements as adv Continue taking Metamucil and Colace Prescriptions: New polyethylene glycol 3350 [Miralax] 17 gram/dose powder 17 g PO DAILY Qty: 510 0RF No Action naratriptan 2.5 mg tablet 2.5 mg PO DIRECTED ondansetron HCl 4 mg tablet 4 mg PO Q12H PRN (Reason: nausea) carisoprodol 350 mg tablet 350 mg PO BEDTIME riboflavin (vitamin B2) [Vitamin B-2] 100 mg tablet 200 mg PO BID topiramate 50 mg tablet 50 mg PO BID duloxetine 60 mg capsule,delayed release(DR/EC) 120 mg PO DAILY norethindrone acetate 5 mg tablet PO acyclovir 400 mg tablet 400 mg PO .COMPLEX Qty: 25 0RF Rx Instructions: 400 mg orally 5x/day (q4hrs while awake); x 5 days Qulipta 60 mg tablet 60 mg PO DAILY albuterol sulfate [Ventolin HFA] 90 mcg/actuation HFA aerosol inhaler 1 inh inhalation QID PRN (Reason: shortness of breath or wheezing) Qty: 8.5 1RF amoxicillin 500 mg capsule 500 mg PO Q8H Qty: 30 0RF fluticasone propionate [Flonase Allergy Relief] 50 mcg/actuation spray,suspension 1 spray intranasal DAILY Qty: 9.9 1RF Rx Instructions: administer into each nostril Print Language: [place]
[2024-07-26 19:08] LABS: Basophils Absolute Auto 0.1 X10*3/uL (0.0-0.2); Basophils Percent Auto 0.4 % (0-2); Eosinophils Absolute Auto 0.3 X10*3/uL (0.0-0.4); Eosinophils Percent Auto 1.7 % (0-4); Hematocrit 39.8 % (37.0-47.0); Hemoglobin 13.5 g/dl (12.0-16.0); Imm Gran Abs Auto 0.16 X10*3/uL (0.00-0.03); Imm Gran Pct Auto 0.8 % (0.0-0.4); Lymphocytes Absolute Auto 1.6 X10*3/uL (1.2-4.9); Lymphocytes Percent Auto 7.9 % (20-40); MANUAL DIFF FLAG SCAN; Mean Corpuscular HGB Conc 33.9 g/dl (31.0-35.0); Mean Corpuscular Hemoglobin 27.5 pg (27.0-33.0); Mean Corpuscular Volume 81.1 fL (80.0-98.0); Mean Platelet Volume 9.2 fL (9.4-12.3); Monocytes Absolute Auto 1.9 X10*3/uL (0.1-1.2); Monocytes Percent Auto 9.4 % (2-11); Neutrophils Absolute Auto 15.7 x10*3/uL (2.0-8.3); Neutrophils Percent Auto 79.8 % (45-73); Platelet Count 578 X10*3/uL (160-400); Red Blood Count 4.91 X10*6/uL (4.20-5.50); SCAN SMEAR FLAG 1; White Blood Count 19.7 X10*3/uL (4.8-10.8)
[2024-07-26 19:23] LABS: Appearance Urine Cloudy; Color Urine Dark Yellow; Glucose Urine UA Negative (Negative); Leukocyte Esterase Urine Small (1+) (Negative); Nitrite Urine Negative (Negative); PH 5.5 (5.0-9.0); UMIC TRIGGER UACC YES; Urine Blood Small (1+) (Negative); Urine Ketones 15 mg/dL (Negative); Urine Protein 30 (1+) mg/dL (Neg-Trace)
[2024-07-26 19:27] LABS: Bacteria Urine Trace (None Seen); Hyaline Casts Urine 0-2 /LPF (0-2); UACC Culture Trigger YES
[2024-07-26 19:41] LABS: SLIDE REVIEW VERIFIED
[2024-07-26 19:42] LABS: Alanine Aminotransferase 21 U/L (0-31); Albumin Level 3.7 g/dL (3.5-5.0); Alkaline Phosphatase 59 U/L (39-117); Anion Gap 19 (12-20); Aspartate Amino Transferase 17 U/L (5-31); Bilirubin Total 0.4 mg/dL (0.0-1.0); Blood Urea Nitrogen 9 mg/dL (9-16); Calcium 9.8 mg/dL (8.4-10.2); Carbon Dioxide 18 mmol/L (22-29); Chloride 107 mmol/L (96-108); Creatinine Clr Calc Pharmacy 82.7; Estimated Glomerular Filt Rate > 60; Glucose Random 84 mg/dL (60-115); Lipase 24 U/L (8-78); Magnesium 2.2 mg/dL (1.6-2.6); Potassium 3.7 mmol/L (3.3-5.1); Sodium 140 mmol/L (135-145); Total Protein 7.4 g/dL (6.5-8.0)
[2024-07-26] MEDS: bisacodyL 5 MG TABLET.DR 10 MG PO (22:32)
[2024-07-26] MEDS: Milk of Magnesia 30 ML ORAL.SUSP PO (22:33)
[2024-07-26 22:38] VITALS: BP 120/78; PULSE 97; RESP 20; TEMP 36.8; O2SAT 99
== END 2024-07-26 22:44 | disposition home or self-care (01) ==
PROVIDERS: Physician Assistant; Emergency Provider Internal Medicine; PCP Nurse Practitioner Family
DX: K59.00 Constipation, unspecified (principal); Z79.899 Other long term (current) drug therapy
CPT/HCPCS: 36415; 80053; 81001; 83690; 83735; 85025; 87086; 99283; 99284

== ENCOUNTER 2024-12-15 09:36 | Outpatient (REF) | payer BC, SELFPAY ==
[2024-12-15 13:52] LABS: Influenza A PCR NEGATIVE (Negative); Influenza B PCR NEGATIVE (Negative); Resp Syncy Virus RNA Qual PCR NEGATIVE (Negative); SARS COV2 PCR INHOUSE NEGATIVE (Negative)
== END 2024-12-15 09:37 | disposition home or self-care (01) ==
LOC: HO.LAB 09:36
PROVIDERS: Physician Assistant
DX: J01.10 Acute frontal sinusitis, unspecified (principal); R05.1 Acute cough; R09.89 Other specified symptoms and signs involving the circulatory and respiratory systems
CPT/HCPCS: 0241U

== ENCOUNTER 2024-12-15 09:36 | Outpatient (AMB) | payer BC, SELFPAY ==
--- NOTE | 2024-12-15 10:33 | AM.OFFWIN_ITS ---
Intake Vital Signs 12/15/24 10:34 Height 5 ft 4 in Weight 159 lb BMI 27.3 BP 136/94 H Blood Pressure Location Lt brachial Position Sitting Pulse 109 H Pulse Source Pulse Oximeter Temp 98.2 F Temp Source Oral Pulse Oximetry (%) 98 Oxygen Delivery Method Room Air Intake Visit Reasons: EP ? sinus infection Intake Note: Pt is here today for a walk in visit. Pt c/o L ear pain sinus pain and pressure, cough.Pt noticed some blood yesterday when she was blowing her nose. Patient Tobacco Use Status: Never used Tobacco Allergies lidocaine Allergy (Mild, Verified 12/15/24 10:37) Nausea HPI HPI Comments History of Present Illness Details History - The patient is a 49-year-old female pr esenting with sinus pain and ear discomfort. - Symptoms began four days ago and the p atient experiences sinus infections annually. - Fever was present initially but did no t recur; a non-productive cough is also noted. - Ear discomfort is more pronounced in t he left ear, with frequent yet stable headache history. - The patient has no history of respirat ory or ear infections and has used Mucinex D, Afrin, and increased fluids for relief. - Reports a work environment with consid erable illness exposure but has not self-tested for COVID-19. Physical Exam General: Cooperative, healthy appearing, comfortable and no acute distress Orientation/consciousness: Patient oriented x3 Limitations: No limitations Head: Normal to inspection Ears: Hearing grossly normal bilaterally, external ears normal, fluid in the left ear otherwise TM's normal bilaterally Nose: Normal external nose present, Normal nares present and No nasal discharge present Face and sinus: Normal facial exam and Sinuses tender Mouth: Normal oral and palatal mucosa present and moist mucous membranes Throat: Yes tonsils normal, Yes uvula midline. Posterior oropharynx erythema, no exudates Eyes: Appearance normal, both eyes and all related structures Neck: Normal visual inspection Respiratory: Clear to auscultation bilaterally. Normal respiratory effort, able to speak in complete sentences, no respiratory distress, not tachypneic, no tripod positioning and no use of accessory muscles Cardiovascular: Regular rate and rhythm. Normal S1 and S2 Skin: No rashes or lesions noted Neuro: Patient oriented x3 Extremities: Normal to inspection and Yes no clubbing, cyanosis or edema [facility] Medical History Depression Migraines Tonsillitis Social History Patient Tobacco Use Status: Never used Tobacco Review of Systems Const All systems reviewed & are unremarkable except as noted in HPI and below Physical Exam Vital Signs: Last Vital Signs Temp 98.2 F 12/15/24 10:34 Pulse 109 H 12/15/24 10:34 BP 136/94 H 12/15/24 10:34 Pulse Ox 98 12/15/24 10:34 Oxygen Delivery Method Room Air 12/15/24 10:34 BMI result Body Mass Index 27.3 Assessment & Plan Assessment & Plan (1) Sinusitis, acute: Code(s): J01.90 - Acute sinusitis, unspecified Qualifiers: Sinusitis location: frontal Recurrence: non-recurrent Qualified Code(s): J01.10 - Acute frontal sinusitis, unspecified Plan: The treatment plan involves addressing potential viral etiology, with Flonase prescribed to reduce nasal inflammation and promote sinus drainage, complemented by neti pot use. Awaiting diagnostic results for influenza, COVID-19, and RSV will direct further therapeutic choices; should they return negative, Augmentin will be given for bacterial sinus involvement. For temporary reduction of inflam mation and associated fluid, a Medrol Dosepak is prescribed, emphasizing morning dosing for patient comfort and systemic efficacy. Patient was informed and verbally consented to the use of an ambient scribe for clinic note documentation during this visit Orders: Orders SARS-CoV2/FLU/RSV Today R09.89 - Other specified symptoms and signs involving the circulatory and respiratory systems Medications: New fluticasone propionate 50 mcg/actuation administer into each nostril 1 spray intranasal Q12H 16 grams 0RF methylprednisolone PO PER PKG DIR for 6 days 21 ea 0RF Coding Level of Care Code New Pt Level 3 (34616) Diagnoses Acute non-recurrent frontal sinusitis J01.10 Sinusitis location: frontal Recurrence: non-recurrent
[2024-12-15 10:34] VITALS: BP 136/94; PULSE 109; TEMP 36.8; O2SAT 98; BMI 27.3
== END 2024-12-15 11:05 | disposition home or self-care (01) ==
PROVIDERS: Visit Provider Physician Assistant
DX: J01.10 Acute frontal sinusitis, unspecified (principal)

== ENCOUNTER 2025-04-10 10:57 | Outpatient (AMB) | payer BC, SELFPAY ==
--- NOTE | 2025-04-10 10:58 | AM.OFFWIN_ITS ---
Intake Vital Signs 04/10/25 11:01 Weight 156 lb BP 130/84 Blood Pressure Location Rt brachial Position Sitting Pulse 96 Pulse Source Pulse Oximeter Temp 98.4 F Temp Source Oral Pulse Oximetry (%) 97 Oxygen Delivery Method Room Air Intake Visit Reasons: EP Sinus congestion Intake Note: Patient here for sinus congestion, sneezing, post nasal drip, slight fevers, head pressure/headaches and bilat ear pain that started . Patient Tobacco Use Status: Never used Tobacco Allergies lidocaine Allergy (Mild, Verified 04/10/25 11:02) Nausea Do you need a note to return to daycare/school/sports/work: No HPI HPI Comments History of Present Illness Details History - The patient is a 50-year-old female pr esenting with suspected sinus infection. - Symptoms began on a Thursday with signif icant sinus pressure and pain, accompanied by ear pain. - The patient experienced sneezing and f ever, which peaked at 101?F on Thursday but resolved by Thursday with the use of ibuprofen. - The patient has ongoing nasal congesti on and drippy rhinorrhea, with no effective expulsion upon attempting to relieve the congestion by blowing the nose. - She had been using Mucinex D but saw n o improvement. - The patient denies any known seasonal allergies and has not been on a daily allergy regimen, although Flonase is documented in her medication history but has not been used recently. - Symptoms limited to the upper respirat ory tract, without cough or chest congestion. - Describes her facial sensations as radha ng swollen, similar to feeling like a raccoon, suggesting significant facial puffiness. Physical Exam General: Cooperative, healthy appearing, comfortable and no acute distress Orientation/consciousness: Patient oriented x3 Limitations: No limitations Head: Normal to inspection Ears: Hearing grossly normal bilaterally, external ears normal and TM's normal bilaterally Nose: Normal external nose present, Normal nares present and No nasal discharge present Face and sinus: Normal facial exam and frontal sinus tenderness bilat Mouth: Normal oral and palatal mucosa present and moist mucous membranes Throat: Yes tonsils normal, Yes uvula midline. Posterior oropharynx erythema Eyes: Appearance normal, both eyes and all related structures Neck: Normal visual inspection Respiratory: Clear to auscultation bilaterally. Normal respiratory effort, able to speak in complete sentences, No active coughing, no respiratory distress, not tachypneic, no tripod positioning and no use of accessory muscles Cardiovascular: Regular rate and rhythm. Normal S1 and S2 Skin: No rashes or lesions noted Neuro: Patient oriented x3 Extremities: Normal to inspection and Yes no clubbing, cyanosis or edema PFSH Medical History Depression Migraines Tonsillitis Social History Patient Tobacco Use Status: Never used Tobacco Review of Systems Const All systems reviewed & are unremarkable except as noted in HPI and below Physical Exam Vital Signs: Last Vital Signs Temp 98.4 F 04/10/25 11:01 Pulse 96 04/10/25 11:01 BP 130/84 04/10/25 11:01 Pulse Ox 97 04/10/25 11:01 Oxygen Delivery Method Room Air 04/10/25 11:01 Assessment & Plan Assessment & Plan (1) Sinusitis, acute: Code(s): J01.90 - Acute sinusitis, unspecified Qualifiers: Sinusitis location: frontal Recurrence: non-recurrent Qualified Code(s): J01.10 - Acute frontal sinusitis, unspecified Plan: VSS, pt well appearing and PE remarkable for frontal sinus ttp. To effectively manage the suspected acute viral sinusitis, Fluticasone nasal spray Flonase is recommended at a dosing frequency of twice daily, ensuring the use of proper technique for optimal results. Additionally, the initiation of a six-day course of Solumedrol Dosepak will be implemented, beginning with a higher dose initially and tapering, to manage inflammation. Prior cleansing with a neti pot using distilled water is advised to enhance sinus clearance. The patient will begin a daily oral antihistamine in the morning to assist with symptom control. Hydration and rest are advised adjunctively. Antibiotic therapy is deemed unnecessary, given the viral nature of most sinusitis. The patient understood and consented to the plan. Patient was informed and verbally consented to the use of an ambient scribe for clinic note documentation during this visit Medications: New methylprednisolone PO PER PKG DIR for 6 days 21 ea 0RF Coding Level of Care Code New Pt Level 3 (85035) Diagnoses Acute non-recurrent frontal sinusitis J01.10 Sinusitis location: frontal Recurrence: non-recurrent
[2025-04-10 11:01] VITALS: BP 130/84; PULSE 96; TEMP 36.9; O2SAT 97
== END 2025-04-10 11:29 | disposition home or self-care (01) ==
PROVIDERS: Visit Provider Physician Assistant
DX: J01.10 Acute frontal sinusitis, unspecified (principal)

== ENCOUNTER → 2025-04-10 10:57 | Outpatient (BNVA) | payer BC, SELFPAY | PROVIDERS: Visit Provider Physician Assistant | DX: Z13.89 Encounter for screening for other disorder (principal) ==

== ENCOUNTER 2025-06-27 10:23 | Outpatient (AMB) | payer BC, SELFPAY ==
[2025-06-27 10:54] VITALS: BP 94/60; PULSE 126; TEMP 36.7; O2SAT 99; BMI 27.7
--- NOTE | 2025-06-27 10:54 | MHC.OFFWIV ---
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 - Abdominal pain began on Thursday with severe constipation, managed with MiraLax and docusate sodium. - She took the medications Thursday, Thursday and Thursday. - Partial relief was noted with bowel movements on Thursday and Thursday, followed by diarrhea. - Diarrhea occurred three times between 9:00 and 10:00 AM, causing lightheadedness and dizziness. - She had to leave work because she was not able to make it to the bathroom. - She states that she has abdominal cramping as well. - No blood in stools or urine, and no chest pain or shortness of breath reported. - Minimal dietary intake, consisting of light meals and water as the primary fluid intake. - She has no sick contacts, fever, chills, back pain, dysuria, hematuria, melena, nausea or vomiting. Physical Exam General: Cooperative, healthy appearing, comfortable, no acute distress and well developed Respiratory: Normal respiratory effort and able to speak in complete sentences. Clear to auscultation bilaterally Cardiovascular: Regular rate and rhythm. Normal S1 and S2 GI: Hypoactive bowel sounds noted. Soft, non-distended. TTP of the suprapubic region. No guarding or rebound tenderness noted. Negative Graf's. Negative Rovsing noted. Negative CVA tenderness noted. Neuro: Patient oriented x3 Extremities: Normal to inspection Patient was informed and verbally consented to the use of an ambient scribe for clinic note documentation during this visit. [facility] Medical History Depression Migraines Tonsillitis Social History Patient Tobacco Use Status: Never used Tobacco Patient : No Review of Systems Const All systems reviewed & are unremarkable except as noted in HPI and below Physical Exam Vital Signs: Last Vital Signs Temp 98.0 F 06/27/25 10:54 Pulse 126 H 06/27/25 10:54 BP 94/60 06/27/25 10:54 Pulse Ox 99 06/27/25 10:54 BMI result Body Mass Index 27.7 Assessment & Plan Assessment & Plan (1) Diarrhea: Code(s): R19.7 - Diarrhea, unspecified Qualifiers: Diarrhea type: unspecified type Qualified Code(s): R19.7 - Diarrhea, unspecified Plan Most likely due to her overuse of laxatives Plan - Discontinue laxatives and allow natural bowel clearance. - Maintain hydration with clear fluids and consume light meals. - Avoid binding foods to facilitate bowel clearance. - Rest and refrain from work until symptoms resolve. - Post-recovery, consider a gentle daily laxative to prevent constipation. Coding Level of Care Code Est Pt Level 4 (60352) Diagnoses Diarrhea, unspecified type R19.7 Diarrhea type: unspecified type
== END 2025-06-27 12:34 | disposition home or self-care (01) ==
PROVIDERS: Visit Provider Physician Assistant Medical
DX: R19.7 Diarrhea, unspecified (principal)